=== PATIENT | male | born 1965 | race Caucasian/White ===

== ENCOUNTER → 2019-02-08 | Day surgery (SDC) | payer BC ==
[2019-02-08] VITALS (7 sets, daily range): BP systolic 128–148; BP diastolic 72–99
[~2019-02-08] VITALS: Ht 182.9 cm; Wt 98.9 kg
[~2019-02-08] MED LIST: ALPRAZOLAM 0.5 MG TAB ONE; ASPIR 8181 MG; ASPIRIN325 MG PO; CARAFATE1 G1 PO; DIPHENHYDRAMINE HCL 25 MG CAP ONE; FENTANYL CITRATE/PF 100MCG/2 ML INJ ONE; HEPARIN SOD (PORCINE) 1000 UNIT/ML 30ML ONE; HEPARIN SOD/SOD CHLORIDE 2,000 ML ONE; HYDROCODON-ACE1 EA11 PO; IOPAMIDOL 370 MG/ML 200 ML INFUS..BTL INJ ONE; ISOSORBIDE MONO30 MG PO; LIDOCAINE HCL 2% LOCAL 20 ML VIAL ONE; METFORMIN HCL500 M2 PO; METOPROLOL TART50 MG PO; MIDAZOLAM HCL 2 MG/2 ML VIAL ONE; NITROGLYCERIN/D5W 200 MCG/ML 250 ML ONE; PREDNISONE5 MG PO; SODIUM CHLORIDE 0.9% 1000ML 1,000 ML ONE; VERAPAMIL HCL 2.5 MG/ML 2 ML VIAL ONE; Z METOPROLOL HCT PO; Z.0.CARAFATE1 GM PO; Z.0.COZAAR50 MG PO; Z.0.EFFIENT10 MG PO; Z.0.FOLIC ACID1 MG PO; Z.0.LIPITOR40 MG PO; Z.0.LOVAZA1 GM PO; Z.1.METHOTREXATE2.5 PO; [UNRECOGNIZED DRUG - OTHER] PO
--- NOTE | 2019-04-18 07:35 | Operative Report ---
DATE OF PROCEDURE: 02/08/2019 SURGEON: Daniel Benitez MD INDICATIONS: Coronary artery disease, abnormal stress test. PROCEDURES PERFORMED: 1. Left heart catheterization, selective coronary angiography, left ventriculography. 2. Deployment of right wrist TR band. COMPLICATIONS: None. RECOMMENDATIONS: Medical therapy for moderate coronary artery disease. BLOOD LOSS: Minimal. DESCRIPTION OF PROCEDURE: Access obtained in the right radial artery. A 5-Romanian sheath was placed. Diagnostic coronary angiogram revealed patent left anterior descending artery stent, 50% ostial circumflex, 50% mid left anterior descending artery, and 50% proximal right coronary artery stenosis, remaining vessels had mild disease. No critical stenosis or occlusions. LV ejection fraction 60%. LV end-diastolic pressure of 15. No gradient across aortic valve pullback. Right wrist sheath and wire. Sheath and guide removed. TR band applied. The patient discharged home same day. Daniel Benitez MD KSB/MODL /[id number]
== END | disposition home or self-care (01) ==
LOC: CATH LAB 10:18
PROVIDERS: ATTEND Internal Medicine Interventional Cardiology
DX: I25.118 Atherosclerotic heart disease of native coronary artery with other forms of angina pectoris (principal); R94.39 Abnormal result of other cardiovascular function study; I10 Essential (primary) hypertension; E78.5 Hyperlipidemia, unspecified; E11.9 Type 2 diabetes mellitus without complications; Z88.6 Allergy status to analgesic agent; Z95.5 Presence of coronary angioplasty implant and graft; Z87.891 Personal history of nicotine dependence
CPT/HCPCS: 36415; 82948; 93458; C1769; C1887; J1644; J2001; J2250; J7030; Q9967

== ENCOUNTER 2020-04-08 09:39 | Inpatient (IN) | payer SELFPAY ==
[~2020-04-08] VITALS: Ht 182.9 cm; Wt 96.2 kg
[~2020-04-08 09:39] MED LIST changes: -ALPRAZOLAM 0.5 MG TAB ONE; -DIPHENHYDRAMINE HCL 25 MG CAP ONE; -FENTANYL CITRATE/PF 100MCG/2 ML INJ ONE; -HEPARIN SOD (PORCINE) 1000 UNIT/ML 30ML ONE; -HEPARIN SOD/SOD CHLORIDE 2,000 ML ONE; -IOPAMIDOL 370 MG/ML 200 ML INFUS..BTL INJ ONE; -LIDOCAINE HCL 2% LOCAL 20 ML VIAL ONE; -MIDAZOLAM HCL 2 MG/2 ML VIAL ONE; -NITROGLYCERIN/D5W 200 MCG/ML 250 ML ONE; -SODIUM CHLORIDE 0.9% 1000ML 1,000 ML ONE; -VERAPAMIL HCL 2.5 MG/ML 2 ML VIAL ONE
[2020-04-08] MEDS ORDERED: SODIUM CHLORIDE 0.9% 1000ML 1,000 ML IV STA (09:54)
[2020-04-08] MEDS ORDERED: KETOROLAC TROMETHAMINE 30 MG/ML VIAL IV ONE (09:54)
[2020-04-08] MEDS ORDERED: ONDANSETRON HCL INJ 2MG/ML 2ML 2 MG/ML VIAL IV ONE (09:54)
[2020-04-08] MEDS ORDERED: MORPHINE SULFATE 2 MG/ML SYR 1ML IV STA (09:54)
[2020-04-08] MEDS ORDERED: VANCOMYCIN 1GM/NS 250 ML 250 ML IV ONE (10:00)
[2020-04-08] MEDS ORDERED: MORPHINE SULFATE INJ 4 MG/ML INJ 1ML IV ONE (10:15)
[2020-04-08 10:39] LABS: BASOPHILS # (AUTO) 0.1 (0.0-0.1); BASOPHILS % 0.7 % (0.0-1.0); EOSINOPHILS # (AUTO) 0.5 (0.0-0.4); EOSINOPHILS % 2.9 % (0.0-6.0); HEMATOCRIT 48.1 % (38.2-49.6); LYMPHOCYTES # (AUTO) 2.4 (1.0-3.2); LYMPHOCYTES % 14.9 % (18.0-39.1); MEAN CORPUSCULAR HGB CONC 33.3 g/dL (31-35); MEAN CORPUSCULAR VOLUME 87.1 fL (81-99); MONOCYTES # (AUTO) 1.6 (0.2-0.8); MONOCYTES % 9.9 % (4.4-11.3); NEUTROPHILS # (AUTO) 11.6 (2.1-6.9); NEUTROPHILS % 70.8 % (38.7-80.0); PLATELET COUNT 210 x10e3/uL (140-360); RED BLOOD COUNT 5.52 x10e6/uL (4.3-5.7); RED CELL DISTRIBUTION WIDTH 13.8 % (11.7-14.4)
[2020-04-08] MEDS: PIPER-TAZ 3.375 GM 50 ML IV SCH ×3 (10:52→22:21)
[2020-04-08 10:57] LABS: ALANINE AMINOTRANSFERASE 32 IU/L (0-55); ALBUMIN 3.4 g/dL (3.5-5.0); ALBUMIN/GLOBULIN RATIO 0.8 (0.8-2.0); ALKALINE PHOSPHATASE 93 IU/L (40-150); ANION GAP 16.3 mmol/L (8-16); BLOOD UREA NITROGEN 11 mg/dL (7-26); BUN/CREATININE RATIO 10 (6-25); CALCIUM 9.7 mg/dL (8.4-10.2); CARBON DIOXIDE 26 mmol/L (22-29); CHLORIDE 101 mmol/L (98-107); CREATINE KINASE 25 IU/L (30-200); CREATININE, SERUM 1.05 mg/dL (0.72-1.25); EST GLOMERULAR FILTRATION RATE > 60 ML/MIN (60-); GLUCOSE 109 mg/dL (74-118); POTASSIUM 4.3 mmol/L (3.5-5.1); SODIUM 139 mmol/L (136-145)
--- NOTE | 2020-04-08 11:11 | Diagnostic Imaging Report ---
EXAMINATION: CHEST SINGLE (PORTABLE) INDICATION: Pain. COMPARISON: . FINDINGS: TUBES and LINES: None. LUNGS: Lungs are well inflated. There is no evidence of pneumonia or pulmonary edema. PLEURA: No pleural effusion or pneumothorax. HEART AND MEDIASTINUM: The cardiomediastinal silhouette is unremarkable. BONES AND SOFT TISSUES: No acute osseous lesion. Soft tissues are unremarkable. UPPER ABDOMEN: No free air under the diaphragm. IMPRESSION: No acute thoracic abnormality. Signed by: Dr. Galo Cannon M.D. on 04/08/2020 11:08 AM
[2020-04-08 11:18] LABS: INR 0.95; PROTHROMBIN TIME 13.2 seconds (11.9-14.5)
[2020-04-08] MEDS ORDERED: DEXTROSE 50% SYRINGE 50 ML IV PRN (11:30)
[2020-04-08] MEDS ORDERED: MORPHINE SULFATE 2 MG/ML SYR 1ML IV PRN (11:30)
[2020-04-08] MEDS ORDERED: TETANUS/DIPHTHERIA TOX ADULT 0.5 ML SYR IM ONE (11:45)
--- NOTE | 2020-04-08 11:46 | Emergency Department Note ---
History of Present Illnes History of Present Illness Chief Complaint: General Medicine Complaints History of Present Illness This is a 54 year old male HERE FOR LUMP AT TOP OF GLUTEAL CREASE THAT IS PAINFUL, STATES HAS BEEN HAVING COLD SWEATS FOR THE LAST 3 DAYS. STATES HAS BEEN THERE FOR A WEEK. Historian: Patient Arrival Mode: Car Plate Keeper Required: No Onset (how long ago): week(s) (1) Location: BUTTOCKS Quality: PAIN Radiation: Reports non-radiation Severity: severe Onset quality: gradual Timing of current episode: constant Progression: worsening Chronicity: new Context: Denies recent illness Relieving factors: none Exacerbating factors: none Associated symptoms: Reports fever/chills Treatments prior to arrival: none Past Medical/Family History Physician Review I have reviewed the patient's past medical and family history. Any updates have been documented here. Past Medical History Recent Fever: No Clinical Suspicion of Infectio: Yes New/Unexplained Change in Ment: No Past Medical History: Hypertension, Diabetes, CAD Other Medical History: SMOKE 1/2PPD Social History Smoking Cessation: Never Smoker Counseling Performed: No Alcohol Use: None Any Illegal Drug Use: No TB Exposure/Symptoms: No Physically hurt or threatened: No Family History Family history of heart diseas: Yes Other Last Tetanus: UNKNOWN Any Pre-Existing Lines (PICC,: No Review of Systems Review of Systems Constitutional: Reports chills, Reports fever EENTM: Reports no symptoms Cardiovascular: Reports no symptoms Respiratory: Reports no symptoms Gastrointestinal: Reports no symptoms Genitourinary: Reports no symptoms Musculoskeletal: Reports no symptoms Integumentary: Reports as per HPI Neurological: Reports no symptoms Psychological: Reports no symptoms Endocrine: Reports no symptoms Hematological/Lymphatic: Reports no symptoms Physical Exam Related Data Allergies: Coded Allergies: codeine (Verified Allergy, Mild, 04/30/12) Triage Vital Signs Vital Signs Date Time Temp Pulse Resp B/P (MAP) Pulse Ox O2 Delivery O2 Flow Rate FiO2 04/08/20 09:44 97.6 89 16 147/83 99 Vital signs reviewed: Yes Physical Exam CONSTITUTIONAL Constitutional: Present well-developed, Present well-nourished HENT HENT: Present normocephalic, Present atraumatic, Present oropharynx clear/moist, Present nose normal HENT L/R: Present left ext ear normal, Present right ext ear normal EYES Eyes: Reports PERRL, Reports conjunctivae normal NECK Neck: Present ROM normal PULMONARY Pulmonary: Present effort normal, Present breath sounds normal CARDIOVASCULAR Cardiovascular: Present regular rhythm, Present heart sounds normal, Present capillary refill normal, Present normal rate GASTROINTESTINAL Abdominal: Present soft, Present nontender, Present bowel sounds normal GENITOURINARY Genitourinary: Present exam deferred SKIN Skin: Present other (LARGE 15X8 CM AREA OF INDURATION LEFT BUTTOCKS NEAR UPPER GLUTEAL CLEFT AND EXTENDING TO RIGHT BUTTOCKS, NO FLUCTUANCE AND NO PERIRECTAL TENDERNESS OR INFLAMMATION) MUSCULOSKELETAL Musculoskeletal: Present ROM normal NEUROLOGICAL Neurological: Present alert, Present oriented x 3, Present no gross motor or sensory deficits PSYCHOLOGICAL Psychological: Present mood/affect normal, Present judgement normal Results Laboratory Result Diagram: 04/08/2058 04/08/2058 Laboratory Laboratory Tests Test 04/08/20 09:58 White Blood Count 16.37 x10e3/uL (4.8-10.8) Red Blood Count 5.52 x10e6/uL (4.3-5.7) Hemoglobin 16.0 g/dL (14.0-18.0) Hematocrit 48.1 % (38.2-49.6) Mean Corpuscular Volume 87.1 fL (81-99) Mean Corpuscular Hemoglobin 29.0 pg (28-32) Mean Corpuscular Hemoglobin Concent 33.3 g/dL (31-35) Red Cell Distribution Width 13.8 % (11.7-14.4) Platelet Count 210 x10e3/uL (140-360) Neutrophils (%) (Auto) 70.8 % (38.7-80.0) Lymphocytes (%) (Auto) 14.9 % (18.0-39.1) Monocytes (%) (Auto) 9.9 % (4.4-11.3) Eosinophils (%) (Auto) 2.9 % (0.0-6.0) Basophils (%) (Auto) 0.7 % (0.0-1.0) Neutrophils # (Auto) 11.6 (2.1-6.9) Lymphocytes # (Auto) 2.4 (1.0-3.2) Monocytes # (Auto) 1.6 (0.2-0.8) Eosinophils # (Auto) 0.5 (0.0-0.4) Basophils # (Auto) 0.1 (0.0-0.1) Absolute Immature Granulocyte (auto 0.13 x10e3/uL (0-0.1) Prothrombin Time 13.2 seconds (11.9-14.5) Prothromb Time International Ratio 0.95 Sodium Level 139 mmol/L (136-145) Potassium Level 4.3 mmol/L (3.5-5.1) Chloride Level 101 mmol/L (98-107) Carbon Dioxide Level 26 mmol/L (22-29) Anion Gap 16.3 mmol/L (8-16) Blood Urea Nitrogen 11 mg/dL (7-26) Creatinine 1.05 mg/dL (0.72-1.25) Estimat Glomerular Filtration Rate > 60 ML/MIN (60-) BUN/Creatinine Ratio 10 (6-25) Glucose Level 109 mg/dL (74-118) Calcium Level 9.7 mg/dL (8.4-10.2) Total Bilirubin 0.8 mg/dL (0.2-1.2) Aspartate Amino Transf (AST/SGOT) 15 IU/L (5-34) Alanine Aminotransferase (ALT/SGPT) 32 IU/L (0-55) Alkaline Phosphatase 93 IU/L (40-150) Creatine Kinase 25 IU/L (30-200) Creatine Kinase MB 0.50 ng/mL (0-5.0) Troponin I 0.013 ng/mL (0-0.300) B-Type Natriuretic Peptide 16.7 pg/mL (0-100) Total Protein 7.5 g/dL (6.5-8.1) Albumin 3.4 g/dL (3.5-5.0) Globulin 4.1 g/dL (2.3-3.5) Albumin/Globulin Ratio 0.8 (0.8-2.0) Lab results reviewed: Yes Imaging Imaging results reviewed: Yes Impressions EXAMINATION: CHEST SINGLE (PORTABLE) INDICATION: Pain. COMPARISON: . FINDINGS: TUBES and LINES: None. LUNGS: Lungs are well inflated. There is no evidence of pneumonia or pulmonary edema. PLEURA: No pleural effusion or pneumothorax. HEART AND MEDIASTINUM: The cardiomediastinal silhouette is unremarkable. BONES AND SOFT TISSUES: No acute osseous lesion. Soft tissues are unremarkable. UPPER ABDOMEN: No free air under the diaphragm. IMPRESSION: No acute thoracic abnormality. Signed by: Dr. Galo Cannon M.D. on 04/08/2020 11:08 AM Diagnostics Tests Diagnostic test(s) reviewed: Yes Assessment & Plan Medical Decision Making MDM DIABETIC PATIENT WITH CELLULITIS/ABSCESS OF LEFT AND TO LESSER EXTENT RIGHT BUTTOCKS - CHECK CBC, CHEM'S, BLOOD CX'S, UA/CX - DIFF DX INCLUDES CELLULITIS, ABSCESS, PERIRECTAL, EVAL LEUKOCYTOSIS, RENAL INSUFF AND NEED FOR RENAL FUNCTION TO DOSE ABX'S. Assessment & Plan Final Impression: (1) Cellulitis and abscess of buttock Depart Disposition: ADMITTED Last Vital Signs Date Time Temp Pulse Resp B/P (MAP) Pulse Ox O2 Delivery O2 Flow Rate FiO2 04/08/20 09:44 97.6 89 16 147/83 99 Home Meds Reported Medications Prednisone (PREDNISONE) 5 Mg Tablet, 5 MG PO PRN PRN for MODERATE PAIN (4-6) 02/07/19 Hydrocodone Bit/Acetaminophen (HYDROCODON-ACETAMINOPHEN 5-325) 1 Each Tablet, 1 TAB PO PRN PRN for MODERATE PAIN (4-6) 02/07/19 Aspirin (ASPIRIN) 325 Mg Tablet, 325 MG PO DAILY, #30 TAB 02/07/19 Metoprolol Tartrate (METOPROLOL TARTRATE) 50 Mg Tablet, 50 MG PO DAILY, TAB 02/07/19 Isosorbide Mononitrate (ISOSORBIDE MONONITRATE ER) 30 Mg Tab.er.24h, 30 MG PO DAILY, #30 TAB 02/07/19 Metformin Hcl (METFORMIN HCL ER) 500 Mg Tab.er.24, 500 MG PO DAILY, #60 TAB 02/01/16 Atorvastatin Calcium (Lipitor) 40 Mg Tablet, 40 MG PO DAILY 05/03/12 Methotrexate Sodium (Methotrexate) 2.5 Mg Tablet, 2.5 MG PO UD PATIENT TAKES ONCE A WEEK ON Mondays04/30/12 Losartan Potassium (Cozaar) 50 Mg Tablet, 50 MG PO DAILY 04/30/12 Folic Acid (Folic Acid) 1 Mg Tablet, 1 MG PO DAILY 04/30/12 Medications in the ED Morphine Sulfate 4 mg ONCE STAT IV ; Start 04/08/20 at 09:54; Stop 04/08/20 at 09:55; Status UNV Ondansetron HCl 4 mg ONCE ONCE IV Last administered on 04/08/20at 10:52; Admin Dose 4 MG; Start 04/08/20 at 09:54; Stop 04/08/20 at 10:02; Status DC Ketorolac Tromethamine 30 mg ONCE ONCE IV Last administered on 04/08/20at 10:52; Admin Dose 30 MG; Start 04/08/20 at 09:54; Stop 04/08/20 at 10:01; Status DC Sodium Chloride 1,000 ml @ 0 mls/hr Q0M STAT IV Last administered on 04/08/20at 10:52; Admin Dose 999 MLS/HR; Start 04/08/20 at 09:54; Stop 04/08/20 at 09:59; Status DC Piperacillin Sod/ Tazobactam Sod 50 ml @ 50 mls/hr 0400,1000,1600,2200 IV Last administered on 04/08/20at 10:52; Admin Dose 50 MLS/HR; Start 04/08/20 at 10:00; Stop 04/15/20 at 09:59 Vancomycin HCl 250 ml @ 200 mls/hr NOW ONCE IV Last administered on 04/08/20at 10:52; Admin Dose 200 MLS/HR; Start 04/08/20 at 10:00; Stop 04/08/20 at 11:14; Status DC Morphine Sulfate 4 mg ONCE ONCE IV Last administered on 04/08/20at 10:52; Admin Dose 4 MG; Start 04/08/20 at 10:15; Stop 04/08/20 at 10:16; Status DC Ondansetron HCl 4 mg Q4H PRN IV NAUSEA AND VOMITING; Start 04/08/20 at 11:30; Stop 05/08/20 at 11:29; Status UNV Sodium Chloride 1,000 ml @ 100 mls/hr Q10H IV ; Start 04/08/20 at 11:30; Stop 04/09/20 at 07:29; Status UNV Morphine Sulfate 4 mg Q3H PRN IV SEVERE PAIN (7-10); Start 04/08/20 at 11:30; Stop 04/15/20 at 11:29; Status UNV Insulin Human Lispro ACHS SQ ; Start 04/08/20 at 11:30; Stop 05/08/20 at 11:29; Status UNV Dextrose 50 ml PRN PRN IV BLOOD SUGAR; Start 04/08/20 at 11:30; Stop 05/08/20 at 11:29; Status UNV AYLIN TEMPLE MD Apr 08, 2020 11:46
[2020-04-08 11:51] LABS: PARTIAL THROMBOPLASTIN TIME 27.3 seconds (23.8-35.5)
--- OUTSIDE RECORDS SUMMARY | 2020-04-08 11:52 | XMS REPORT | Continuity of Care Document ---
Author Author [facility] Organization [facility] Address [address] [place] [address] [place] [id number] Phone Unavailable Care Team Providers Care Kelp Cutter Name Role Phone Placido TEMPLE Attphys Unavailable Problems This patient has no known problems. Allergies, Adverse Reactions, Alerts This patient has no known allergies or adverse reactions. Medications This patient has no known medications. Procedures This patient has no known procedures. Results Test Description Test Time Test Comments Results Result Comments Source CHEST SINGLE (PORTABLE) 2020-04-08 11:04:[address] [address] Patient Name: ANYA AGGARWAL MR #: [id number] : 1965 Age/Sex: 54/M Req #: [id number] Adm Physician: Ordered by: YALIN TEMPLE MD Report #: [id number] Location: ER Room/Bed: Procedure: [id number] DX/CHEST SINGLE (PORTABLE) Exam Date: 04/08/20 Exam Time: 1040 REPORT STATUS: Signed EXAMINATION: CHEST SINGLE (PORTABLE) INDICATION: Pain. COMPARISON: . FINDINGS: TUBES and LINES: None. LUNGS: Lungs are well inflated. There is no evidence of pneumonia or pulmonary edema. PLEURA: No pleural effus ion or pneumothorax. HEART AND MEDIASTINUM: The cardiomediastinal silhouette is unremarkable. BONES AND SOFT TISSUES: No acute osseous lesion. Soft tissues are unremarkable. UPPER ABDOMEN: No free air under the diaphragm. IMPRESSION: No acute thoracic abnormality. Signed by: Dr. Galo Estrada M.D. on 04/08/2020 11:08 AM Dictated By: AZEB ESTRADA MD, MD 07 Transcribed By: TOMY on 04/08/201107 COPY TO: AYLIN TEMPLE MD
[2020-04-08] MEDS: INSULIN LISPRO 100 UNIT/1 ML 3ML VIAL SQ SCH ×3 (13:14→21:42)
--- NOTE | 2020-04-08 13:50 | NUR ---
RCD PT FROM ER BY BED PT IS ALERT AND ORIENTED RESTING ON BED VITALS CHECKED ,IV PATENT BY SALINE FLUSH ADMISSION ASSESSMENT AND HISTORY DONE REDNESS ,PAIN AND SWELLING ON THE BUTTOCKS INSTRUCTED PT HOSPITAL POLICY AND ROUTINE SPECIALLY IN VISITING POLICY BED LOW AND LOCKED CALL LIGHT IN REACH
[2020-04-08] MEDS: SODIUM CHLORIDE 0.9% 1000ML 1,000 ML IV SCH (14:30)
[2020-04-08 14:38] VITALS: BP 128/82
[2020-04-08 14:46] VITALS: BP 128/82
[2020-04-08] MEDS: MORPHINE SULFATE INJ 4 MG/ML INJ 1ML IV PRN (15:14)
[2020-04-08] MEDS: ONDANSETRON HCL INJ 2MG/ML 2ML 2 MG/ML VIAL IV PRN (15:17)
[2020-04-08 15:44] VITALS: BP 132/77
--- NOTE | 2020-04-08 18:38 | NUR ---
pt resting on bed bed side report given to oncoming nurse
--- NOTE | 2020-04-08 19:15 | NUR ---
received report from day nurse. patient is resting comfortably in the bed. bed is in the lowest position and call light is within reach. will continue to monitor patient.
--- NOTE | 2020-04-08 20:06 | NUR ---
patient has a temperature of 102. CARTOGRAPHY TEACHER notified. received new order for tylenol 650mg po q6 hours as needed for elevated temperature.
[2020-04-08] MEDS: ACETAMINOPHEN 325 MG TAB PO PRN (20:26)
[2020-04-08] MEDS ORDERED: HYDRALAZINE HCL 20 MG/ML VIAL IV PRN (20:30)
[2020-04-08 20:39] VITALS: BP 125/62
[2020-04-08] MEDS: VANCOMYCIN 1GM/NS 250 ML 250 ML IV SCH (21:15)
[2020-04-08 21:17] VITALS: BP 125/62
[2020-04-09] VITALS (9 sets, daily range): BP systolic 106–128; BP diastolic 57–75
[2020-04-09] MEDS: ONDANSETRON HCL INJ 2MG/ML 2ML 2 MG/ML VIAL IV PRN (02:10)
[2020-04-09] MEDS: MORPHINE SULFATE INJ 4 MG/ML INJ 1ML IV PRN ×3 (02:11→20:33)
[2020-04-09] MEDS: PIPER-TAZ 3.375 GM 50 ML IV SCH ×4 (03:56→22:00)
[2020-04-09] MEDS: SODIUM CHLORIDE 0.9% 1000ML 1,000 ML IV SCH ×3 (03:57→22:45)
[2020-04-09] MEDS: ACETAMINOPHEN 325 MG TAB PO PRN ×2 (04:14→11:55)
[2020-04-09 06:05] LABS: BASOPHILS # (AUTO) 0.1 (0.0-0.1); BASOPHILS % 0.5 % (0.0-1.0); EOSINOPHILS # (AUTO) 0.5 (0.0-0.4); EOSINOPHILS % 3.3 % (0.0-6.0); HEMATOCRIT 39.4 % (38.2-49.6); LYMPHOCYTES # (AUTO) 1.9 (1.0-3.2); LYMPHOCYTES % 12.6 % (18.0-39.1); MEAN CORPUSCULAR HEMOGLOBIN 28.8 pg (28-32); MEAN CORPUSCULAR VOLUME 87.4 fL (81-99); MONOCYTES # (AUTO) 1.7 (0.2-0.8); NEUTROPHILS # (AUTO) 10.9 (2.1-6.9); NEUTROPHILS % 71.7 % (38.7-80.0); PLATELET COUNT 166 x10e3/uL (140-360); RED BLOOD COUNT 4.51 x10e6/uL (4.3-5.7); RED CELL DISTRIBUTION WIDTH 13.9 % (11.7-14.4)
[2020-04-09 06:38] LABS: ALANINE AMINOTRANSFERASE 24 IU/L (0-55); ALBUMIN 2.6 g/dL (3.5-5.0); ALBUMIN/GLOBULIN RATIO 0.8 (0.8-2.0); ALKALINE PHOSPHATASE 74 IU/L (40-150); ANION GAP 14.7 mmol/L (8-16); BLOOD UREA NITROGEN 12 mg/dL (7-26); BUN/CREATININE RATIO 10 (6-25); CALCIUM 8.4 mg/dL (8.4-10.2); CARBON DIOXIDE 25 mmol/L (22-29); CHLORIDE 102 mmol/L (98-107); CREATININE, SERUM 1.16 mg/dL (0.72-1.25); EST GLOMERULAR FILTRATION RATE > 60 ML/MIN (60-); GLUCOSE 125 mg/dL (74-118); POTASSIUM 4.7 mmol/L (3.5-5.1); SODIUM 137 mmol/L (136-145)
--- NOTE | 2020-04-09 06:40 | Consultation ---
DATE OF CONSULTATION: 04/09/2020 HISTORY OF PRESENT ILLNESS: The patient is a 54-year-old male, presents with complaints of pain and swelling in the left buttock area. He has had symptoms for about a week. He has associated fever and sweats. Came to the emergency room, where evaluation suggested cellulitis, abscess in the buttock, particularly on the left side. The patient has not noticed any drainage. Bowel function has been normal. PAST MEDICAL HISTORY: Significant for type 2 diabetes, hypertension, coronary artery disease, had previous coronary stent. MEDICATIONS: At home were: 1. Aspirin. 2. Lipitor. 3. Folic acid. 4. Pain medication. 5. Isosorbide. 6. Losartan. 7. Metformin. 8. Methotrexate for rheumatoid arthritis. 9. Metoprolol. ALLERGIES: CODEINE. FAMILY HISTORY: Noncontributory. SOCIAL HISTORY: The patient smokes cigarettes half pack per day. Does not drink alcohol. REVIEW OF SYSTEMS: As stated above, otherwise was negative. PHYSICAL EXAMINATION: GENERAL: The patient is awake and alert, in no distress. VITAL SIGNS: At this time reveal fever during the night up to 102.7, heart rate is normal at this time. Blood pressure is normal. HEENT: Sclerae are nonicteric. NECK: No masses. LUNGS: Equal breath sounds are clear bilaterally. CARDIAC: Regular rate and rhythm. ABDOMEN: Soft. There is no tenderness. No mass. No organomegaly. EXTREMITIES: In the buttock area on the left side, particularly there is erythema and induration. There is tenderness. There is no drainage. Extremities have no edema. NEUROLOGIC: Grossly intact. ASSESSMENT: A 54-year-old male with abscess in the left superior buttock extending to the right side. PLAN: Incision and drainage to be done today. There are no signs of necrotizing infection. Procedure was explained to the patient including risks, benefits and alternatives. He understands. He has had the opportunity to ask questions. Thank you for asking me to see Mr. Interiano. MD VAZQUEZ Malone/MELIZA /[id number]
[2020-04-09 07:00] LABS: MAGNESIUM 1.7 MG/DL (1.3-2.1); PHOSPHORUS 3.5 MG/DL (2.3-4.7)
--- NOTE | 2020-04-09 07:02 | NUR ---
report given to day nurse. patient is resting comfortably in the bed. bed is in the lowest position and call light is within reach.
[2020-04-09] MEDS: INSULIN LISPRO 100 UNIT/1 ML 3ML VIAL SQ SCH ×4 (07:30→20:33)
[2020-04-09] MEDS ORDERED: MAGNESIUM SULF 1GRAM/DEXTROSE 100 ML IV ONE (08:30)
[2020-04-09] MEDS: FAMOTIDINE 20 MG/2 ML VIAL IV SCH ×2 (09:00→17:46)
[2020-04-09] MEDS: VANCOMYCIN 1GM/NS 250 ML 250 ML IV SCH ×2 (10:40→22:00)
[2020-04-09] MEDS ORDERED: LIDOCAINE HCL 1% LOCAL INJ 20 ML VIAL ONE (11:26)
[2020-04-09] MEDS ORDERED: HYDROCODONE/APAP 5MG-325MG TAB PO PRN ×2 (12:30→12:45)
--- NOTE | 2020-04-09 12:39 | NUR ---
PT NOT IN ROOM, GONE FOR A PROCEDURE LEFT PACKET OF INFORMATION WITH COMMUNITY [employer]OURCES FOR ASSISTANCE WITH LOW TO NO INCOME TO PATIENT. RESOURCES THAT PATIENT MAY BE ABLE TO FOLLOW UP UPON DISCHARGE. PT EDUCATED ON EACH RESOURCE AND UNDERSTANDING HOW TO FOLLOW UP TO SEE IF QUALIFIED FOR EACH RESOURCE.
[2020-04-09] MEDS ORDERED: ACETAMINOPHEN 325 MG TAB PO PRN (12:45)
[2020-04-09] MEDS ORDERED: ONDANSETRON HCL INJ 2MG/ML 2ML 2 MG/ML VIAL IV PRN (12:45)
[2020-04-09] MEDS ORDERED: ONDANSETRON HCL INJ 2MG/ML 2ML 2 MG/ML VIAL ONE (14:33)
[2020-04-09] MEDS ORDERED: LIDOCAINE HCL 2% LOCAL INJ 5 ML SDV VIAL INJ ONE (14:33)
[2020-04-09] MEDS ORDERED: PROPOFOL IV EMULSION 10 MG/ML 20 ML VIAL ONE (14:33)
[2020-04-09] MEDS ORDERED: SEVOFLURANE INHAL SOLN 250 ML PEN BTL ONE (14:33)
[2020-04-09] MEDS ORDERED: DEXAMETHASONE SOD PHOS INJ 4 MG/ML VIAL ONE (14:33)
[2020-04-09] MEDS ORDERED: MIDAZOLAM HCL 2 MG/2 ML VIAL ONE (15:11)
[2020-04-09] MEDS ORDERED: FENTANYL CITRATE/PF 100MCG/2 ML INJ ONE (15:11)
--- NOTE | 2020-04-09 15:40 | NUR ---
Radiology notified that PICC line consent is signed.
--- NOTE | 2020-04-09 17:40 | NUR ---
Dressing fell off and is saturated with blood. Packing is still in place. Covered sites with dry sterile dressing to bilateral buttock
[2020-04-09] MEDS: MAGNESIUM OXIDE 400 MG TAB PO SCH (17:46)
[2020-04-09] MEDS: ASCORBIC ACID 500 MG TAB PO SCH (17:46)
[2020-04-09] MEDS: OYST-CAL-D 500MG TABLET PO SCH (17:46)
--- NOTE | 2020-04-09 18:19 | History and Physical ---
PRIMARY CARE PHYSICIAN: No PCP listed. CONSULTING PHYSICIAN: Dr. Elbert Duran. CHIEF COMPLAINT: Cellulitis and abscess of the buttock. HISTORY OF PRESENT ILLNESS: The patient is a 54-year-old male who presented with complaints of swelling and pain in the left buttock area. He has had symptoms of sweats with fever and chills for about the past week. He came for evaluation in the emergency department and abscess on the left buttock extending to the right and cellulitis was suggested. The patient has not noticed any drainage and has not noticed any open wounds. Bowel function has been normal. He is seen alone in room 200. PAST MEDICAL HISTORY: Diabetes mellitus, hypertension, coronary artery disease, unstable angina, anterior wall ST-elevation NH, and rheumatoid arthritis. PAST SURGICAL HISTORY: He has had several left heart cath and coronary artery stent placement x1, and appendectomy. FAMILY HISTORY: Father had lung cancer. Mother had kidney failure. SOCIAL HISTORY: He is smoked about half a pack a day cigarettes for 15 years. Denies alcohol or illicit drug use. ALLERGIES: CODEINE. HOME MEDICATIONS: 1. Aspirin. 2. Lipitor. 3. Folic acid. 4. Pain medication. 5. Losartan. 6. Isosorbide. 7. Metformin. 8. Methotrexate for rheumatoid arthritis. 9. Metoprolol. CURRENT MEDICATIONS: 1. Zosyn. 2. Vancomycin. 3. Lispro insulin sliding scale. 4. IV Pepcid. 5. Morphine sulfate. 6. Tylenol p.r.n. 7. Hydralazine p.r.n. 8. Zofran p.r.n. REVIEW OF SYSTEMS: A 14-point review of systems was completed and within that patient admitted to having fever off and on with chills and sweats. The last bowel movement was 04/07. Otherwise, bilateral buttock pain as per history of present illness. PHYSICAL EXAMINATION: VITAL SIGNS: Temperature 99.1, T-max 102.7, heart rate 81, blood pressure 111/71, respirations 19, oxygen saturation 99%. Height 6 feet 0 inch, weight 212 pounds. BMI 28.74. GENERAL: The patient is lying supine, awake and alert. LUNGS: Clear to auscultation. Respirations even and nonlabored. HEENT: EOMI. NECK: Supple. CARDIOVASCULAR: Regular rate and rhythm. No murmur. ABDOMEN: Bowel sounds positive. Soft, nontender. EXTREMITIES: Without pitting edema. No clubbing, cyanosis, or marked swelling. NEUROLOGICAL: GCS 15. Nonfocal. INTEGUMENTARY: No lesions noted or drainage. MUSCULOSKELETAL: Bilateral buttocks tender to gentle palpation specially at the top in between the crease, hardened area to palpation. LABORATORY DATA: WBC 15.13, hemoglobin 13, hematocrit 39.4, and platelets 166. On admission, WBC 16.37. Sodium 137, potassium 4.7, chloride 102, CO2 of 25, anion gap 14.7, BUN 12, creatinine 1.16, estimated GFR greater than 60, and glucose 125. Fingerstick blood glucose levels 111 and 116. Calcium 8.4, phosphorus 3.5, magnesium 1.7, total bilirubin 0.9, AST 13, ALT 24, alkaline phosphatase 74, total protein 5.8, albumin 2.6, phosphorus 3.5, and magnesium 1.7. Puga virus by PCR collected 04/08 and pending. Blood cultures x2 collected 04/08 showed no growth after 24 hours. Chest x-ray done 04/08 shows no acute thoracic abnormality. ASSESSMENT AND PLAN: 1. Bilateral upper buttock and ensure crease abscess, cellulitis with planned I and D for 04/09/[address] Duran, sepsis (POA). Remains afebrile, T-max 102.7, WBC 15.1. Currently on vancomycin and Zosyn. We will continue these. PICC line ordered as the patient will likely require multiple doses of IV antibiotics, vancomycin trough with every 3rd dose. Wound Healing supplements ordered, n.p.o. for surgery, had a preoperative discussion with the patient regarding incentive spirometry use and importance. We will consider consulting Infectious Disease. Follow up on intraoperative wound culture and sensitivity results. 2. Uncontrolled type 2 diabetes mellitus with hyperglycemia and skin manifestations. Continue sliding scale insulin. Glucose 125. Check hemoglobin A1c in the morning. Monitor fingerstick blood glucose levels before meals and at bedtime. 3. Controlled hypertension. Resume home medications and monitor blood pressure. 4. Peripheral artery disease with history a STEMI of anterior wall. Continue aspirin and beta horace. 5. Active smoker. Encourage cessation. Incentive spirometry every hour while awake. 6. Mild acute hypomagnesemia. Magnesium level 1.7, 2 g magnesium sulfate ordered, followup level in a.m. 7. Rheumatoid arthritis. Hold methotrexate for now. 8. Hyperlipidemia. Resume Lipitor. Check lipid panel in a.m. 9. Prophylaxis. IV Pepcid, SCDs. Time spent 60 minutes. Billing code 10019. Dictated by Rafael Saravia, SUPERINTENDENT MECHANICAL MD JESS ArriazaP/MODL /[id number]
--- NOTE | 2020-04-09 20:03 | Diagnostic Imaging Report ---
Examination: Single AP view of the chest. COMPARISON: Portable chest 04/08/2020 INDICATION: Line placement IMPRESSION: 1. Lines and Tubes: Interval placement of left-sided PICC line, which has distal tip projecting in the mid SVC. 2. Lungs are grossly clear. No consolidation or effusion. 3. Cardiomediastinal silhouette is normal. Pulmonary vasculature is normal. 4. No acute bony abnormalities. Signed by: Dr. Jd Mirza M.D. on 04/09/2020 8:00 PM
--- NOTE | 2020-04-09 20:05 | Operative Report ---
DATE OF PROCEDURE: 04/09/2020 SURGEON: Elbert Duran MD PREOPERATIVE DIAGNOSIS: Deep abscess, bilateral buttocks. POSTOPERATIVE DIAGNOSIS: Deep abscess, bilateral buttocks. PROCEDURE: Incision and drainage, deep abscess, bilateral buttocks. SPRING FORMER: None. ANESTHESIA: General. INDICATIONS AND FINDINGS: The patient is a 54-year-old male admitted with complaints of pain and swelling in the superior buttocks bilaterally as well as with fever. At surgery, the patient had a large abscess, mostly on the left side extending the right side extending deep into the buttocks down to muscles around the lower back approximately 100 mL of purulent fluid was drained. TECHNIQUE: After adequate general anesthesia, the patient placed on right side down position. The buttocks and lower back were prepped and draped in sterile fashion with Betadine solution. Incision was made in the left superior buttock over the area of induration, carried down through subcutaneous tissue through the deeper tissues through the fascia and abscess cavity was entered. Purulent fluid was drained. Sample taken for culture and sensitivity. About 100 mL of purulent fluid was drained. The abscess cavity was large extended from the left side to the right. Additional incision was made on the right side to provide adequate drainage. This was at the superior buttock on the right. This was carried down through subcutaneous tissue to enter the abscess cavity. The abscess cavity was irrigated with saline, it was then packed open with half-inch iodoform gauze and sterile dressing applied. The patient tolerated the procedure well. Estimated blood loss was 30 mL. There were no complications. All counts were correct. The patient was taken to the recovery room in satisfactory condition. Elbert Duran MD DWG/MODL /[id number] cc: Shaji Montes MD
[2020-04-09] MEDS: ATORVASTATIN 40 MG TAB PO SCH (20:32)
[2020-04-10] VITALS (8 sets, daily range): BP systolic 112–134; BP diastolic 55–79
[2020-04-10] MEDS: PIPER-TAZ 3.375 GM 50 ML IV SCH ×4 (05:18→23:30)
[2020-04-10] MEDS: MORPHINE SULFATE INJ 4 MG/ML INJ 1ML IV PRN (05:19)
[2020-04-10 05:50] LABS: BASOPHILS # (AUTO) 0.1 (0.0-0.1); BASOPHILS % 0.6 % (0.0-1.0); EOSINOPHILS # (AUTO) 0.5 (0.0-0.4); EOSINOPHILS % 4.3 % (0.0-6.0); HEMATOCRIT 37.4 % (38.2-49.6); HEMOGLOBIN 12.3 g/dL (14.0-18.0); LYMPHOCYTES % 17.3 % (18.0-39.1); MEAN CORPUSCULAR HEMOGLOBIN 28.7 pg (28-32); MEAN CORPUSCULAR HGB CONC 32.9 g/dL (31-35); MEAN CORPUSCULAR VOLUME 87.2 fL (81-99); MONOCYTES % 8.4 % (4.4-11.3); NEUTROPHILS # (AUTO) 7.9 (2.1-6.9); NEUTROPHILS % 68.6 % (38.7-80.0); PLATELET COUNT 150 x10e3/uL (140-360); RED BLOOD COUNT 4.29 x10e6/uL (4.3-5.7); RED CELL DISTRIBUTION WIDTH 13.9 % (11.7-14.4)
[2020-04-10 06:09] LABS: CHOL/HDL RATIO 8.1 (3.9-4.7)
[2020-04-10 06:29] LABS: THYROID STIMULATING HORMONE 3.562 uIU/mL (0.350-4.940)
[2020-04-10] MEDS: INSULIN LISPRO 100 UNIT/1 ML 3ML VIAL SQ SCH ×4 (07:30→20:12)
[2020-04-10] MEDS: METFORMIN HCL 500 MG TAB CR PO SCH (08:41)
[2020-04-10] MEDS: METOPROLOL TARTRATE 50 MG TAB PO SCH (08:42)
[2020-04-10] MEDS: FOLIC ACID 1 MG TAB PO SCH (08:42)
[2020-04-10] MEDS: MAGNESIUM OXIDE 400 MG TAB PO SCH ×2 (08:42→18:17)
[2020-04-10] MEDS: MULTIVITAMINS/MINERALS TAB PO SCH (08:42)
[2020-04-10] MEDS: OYST-CAL-D 500MG TABLET PO SCH ×2 (08:42→18:17)
[2020-04-10] MEDS: ISOSORBIDE MONONITRATE 30 MG TAB CR PO SCH (08:42)
[2020-04-10] MEDS: ZINC SULFATE 220 MG CAP PO SCH (08:42)
[2020-04-10] MEDS: FAMOTIDINE 20 MG/2 ML VIAL IV SCH ×2 (08:42→18:17)
[2020-04-10] MEDS: ASCORBIC ACID 500 MG TAB PO SCH ×2 (08:42→18:17)
[2020-04-10] MEDS: ASPIRIN 325 MG TAB PO SCH (08:42)
[2020-04-10] MEDS: LOSARTAN POTASSIUM 25 MG TAB PO SCH (08:42)
[2020-04-10] MEDS: SODIUM CHLORIDE 0.9% 1000ML 1,000 ML IV SCH ×3 (08:45→18:23)
[2020-04-10] MEDS ORDERED: LOSARTAN POTASSIUM 50 MG PO SCH (09:00)
[2020-04-10] MEDS ORDERED: NON-FORMULARY MEDICATION (Atorvastatin Calcium (Lipitor) 40 MG) PO SCH (09:00)
[2020-04-10] MEDS: VANCOMYCIN 1GM/NS 250 ML 250 ML IV SCH ×2 (10:35→22:30)
[2020-04-10] MEDS ORDERED: CEFTRIAXONE SOD 2 GM/NS 100 ML 100 ML IV ONE (17:00)
--- NOTE | 2020-04-10 18:55 | Consultation ---
DATE OF CONSULTATION: REASON FOR CONSULTATION: Abscess. HISTORY OF PRESENT ILLNESS: This patient, who is a 54-year-old gentleman, denies past medical history, comes in with abscess in the buttock area. The patient was seen by Dr. Duran, underwent I and D. The patient denies history of trauma. The patient ,who has swelling in the left buttock area. He had this for a couple of weeks. He has had fever and chills. The patient is being admitted. PAST MEDICAL HISTORY: Diabetes mellitus, hypertension, coronary artery disease, and hypercholesterolemia. Also, his past medical history is rheumatoid arthritis. PAST SURGICAL HISTORY: Denies. ALLERGIES: NKA. SOCIAL HISTORY: There is no smoking, drug abuse, or alcohol abuse. FAMILY HISTORY: Unremarkable. HOME MEDICATIONS: He is on aspirin, Lipitor, folic acid, losartan, and methotrexate. REVIEW OF SYSTEMS: At the present time, HEENT: Negative. PULMONARY: Negative. CARDIAC: Negative. His blood cultures no growth. His wound culture showing gram positive cocci and gram-negative bacilli. The patient has a PICC line. PHYSICAL EXAMINATION: GENERAL: He is currently alert and oriented. Does not seem to be in acute distress. VITAL SIGNS: Stable, currently afebrile. HEENT: He is not icteric. NECK: Supple. CHEST: Clear. COR: S1 and S2. No S3, S4, or murmurs. ABDOMEN: Soft. The perirectal area, there is status post drainage. IMPRESSION: Abscess, status post I and D. Currently on vancomycin and Zosyn. Await culture sensitivity, is still draining pus. Discussed with the patient. Depending on the bacteria, we will make final recommendation tomorrow. We will arrange for home IV antibiotic. MD LINDSEY Galloway/MELIZA /[id number]
--- NOTE | 2020-04-10 19:38 | NUR ---
pt received. pt assessed. no ss of distress noted. no co pain at time. sacral drsg cdi. will cont to follow poc. call villatoro within reach. spoke to maki hargrove regarding iv abx. new orders received.
[2020-04-10] MEDS: DOCUSATE SODIUM 100 MG CAP PO SCH (20:12)
[2020-04-10] MEDS: ATORVASTATIN 40 MG TAB PO SCH (20:12)
--- NOTE | 2020-04-10 20:17 | NUR ---
right ac 18 g dc. catheter tip intact. drsg applied to site. pt tolerated well. call villatoro within reach.
--- NOTE | 2020-04-10 22:41 | NUR ---
pt co pain to sacral area. upon administration of medication pt stated no pain and refused any medication. no distress noted. call villatoro within reach.
--- NOTE | 2020-04-11 04:26 | NUR ---
pt resting. no distress noted. call villatoro within reach.
--- NOTE | 2020-04-11 04:58 | NUR ---
blood drawn and sent to lab per orders. pt tolerated well. no distress noted. call villatoro within reach.
[2020-04-11] MEDS: PIPER-TAZ 3.375 GM 50 ML IV SCH ×3 (04:59→16:00)
[2020-04-11 05:01] VITALS: BP 129/71
[2020-04-11 05:29] LABS: BASOPHILS # (AUTO) 0.1 (0.0-0.1); BASOPHILS % 1.1 % (0.0-1.0); EOSINOPHILS # (AUTO) 0.5 (0.0-0.4); EOSINOPHILS % 5.7 % (0.0-6.0); HEMATOCRIT 36.5 % (38.2-49.6); LYMPHOCYTES # (AUTO) 1.9 (1.0-3.2); LYMPHOCYTES % 23.8 % (18.0-39.1); MEAN CORPUSCULAR HEMOGLOBIN 29.2 pg (28-32); MEAN CORPUSCULAR HGB CONC 32.9 g/dL (31-35); MEAN CORPUSCULAR VOLUME 88.8 fL (81-99); MONOCYTES # (AUTO) 0.8 (0.2-0.8); MONOCYTES % 9.6 % (4.4-11.3); NEUTROPHILS # (AUTO) 4.7 (2.1-6.9); NEUTROPHILS % 59.1 % (38.7-80.0); PLATELET COUNT 176 x10e3/uL (140-360); RED BLOOD COUNT 4.11 x10e6/uL (4.3-5.7); RED CELL DISTRIBUTION WIDTH 13.5 % (11.7-14.4)
[2020-04-11] MEDS: SODIUM CHLORIDE 0.9% 1000ML 1,000 ML IV SCH (05:42)
[2020-04-11 06:00] LABS: ANION GAP 15.1 mmol/L (8-16); BLOOD UREA NITROGEN 14 mg/dL (7-26); BUN/CREATININE RATIO 17 (6-25); CALCIUM 8.3 mg/dL (8.4-10.2); CARBON DIOXIDE 24 mmol/L (22-29); CHLORIDE 104 mmol/L (98-107); CREATININE, SERUM 0.84 mg/dL (0.72-1.25); EST GLOMERULAR FILTRATION RATE > 60 ML/MIN (60-); GLUCOSE 107 mg/dL (74-118); POTASSIUM 4.1 mmol/L (3.5-5.1); SODIUM 139 mmol/L (136-145)
--- NOTE | 2020-04-11 07:00 | NUR ---
BEDSIDE SHIFT REPORT FROM FLATCAR WHACKER RN. PT DENIES NEEDS AT THIS TIME.
[2020-04-11] MEDS: INSULIN LISPRO 100 UNIT/1 ML 3ML VIAL SQ SCH ×3 (07:30→16:27)
[2020-04-11 08:13] VITALS: BP 124/75
[2020-04-11 08:16] VITALS: BP 124/75
--- NOTE | 2020-04-11 08:23 | NUR ---
PT SOILED BUTTOCK DRESSINGS WITH STOOL. PT REMOVED DRESSINGS. PT SHOWERED, WOUNDS CLEANED AND REDRESSED.
[2020-04-11] MEDS ORDERED: TYLENOL WITH C1 EACH PO (08:44)
[2020-04-11] MEDS: METFORMIN HCL 500 MG TAB CR PO SCH (09:04)
[2020-04-11] MEDS: ASPIRIN 325 MG TAB PO SCH (09:05)
[2020-04-11] MEDS: FAMOTIDINE 20 MG/2 ML VIAL IV SCH (09:05)
[2020-04-11] MEDS: FOLIC ACID 1 MG TAB PO SCH (09:05)
[2020-04-11] MEDS: LOSARTAN POTASSIUM 25 MG TAB PO SCH (09:05)
[2020-04-11] MEDS: METOPROLOL TARTRATE 50 MG TAB PO SCH (09:05)
[2020-04-11] MEDS: DOCUSATE SODIUM 100 MG CAP PO SCH ×2 (09:05→16:00)
[2020-04-11] MEDS: ISOSORBIDE MONONITRATE 30 MG TAB CR PO SCH (09:05)
[2020-04-11] MEDS: OYST-CAL-D 500MG TABLET PO SCH (09:06)
[2020-04-11] MEDS: MULTIVITAMINS/MINERALS TAB PO SCH (09:06)
[2020-04-11] MEDS: ASCORBIC ACID 500 MG TAB PO SCH (09:06)
[2020-04-11] MEDS: VANCOMYCIN 1GM/NS 250 ML 250 ML IV SCH (09:06)
[2020-04-11] MEDS: MAGNESIUM OXIDE 400 MG TAB PO SCH (09:06)
[2020-04-11] MEDS: ZINC SULFATE 220 MG CAP PO SCH (09:06)
[2020-04-11 11:51] VITALS: BP 116/77
--- NOTE | 2020-04-11 12:35 | Progress Note ---
DATE: SUBJECTIVE: The patient is seen and evaluated, available labs and notes reviewed. REVIEW OF SYSTEMS: No nausea, vomiting, fever, chills, chest pain, shortness of breath, headache, rash, or dysuria. The pain is controlled. PHYSICAL EXAMINATION: VITAL SIGNS: Temperature 98.1, pulse 62, respirations 18, and blood pressure 124/75. MEDICATIONS: From ID point of view, the patient is on vancomycin IV and Zosyn. LABORATORY STUDIES: White count improved to 8.03, hemoglobin 12, and platelet 176. Sodium 139, potassium 4.1, and creatinine 0.84. Vancomycin trough 6.7. On 04/10/2020, allan virus PCR not detected. MICROBIOLOGY: Blood culture of 04/08/2020, negative 48 hours. Wound culture showed E coli, sensitivity noted. PHYSICAL EXAMINATION: GENERAL: Alert and oriented, no acute distress. CV: S1-S2. CHEST: Equal expansion. Clear to auscultation. No acute distress. ABDOMEN: Soft. Nontender. No distention. HEENT: Moist. No pallor. No JVD. EXTREMITIES: Buttock surgical site to be clean. No pus or drainage noted. ASSESSMENT AND PLAN: Abscess of the buttock-status post I and D both sites, seen and evaluated. No obvious acute pus drainage. The wound seems to be mostly clean. Culture and sensitivity as above. The patient is status post PICC line. The patient to follow with Dr. Zhou's office for outpatient IV antibiotics. The patient to be discharged with Rocephin 2 g IV piggyback daily for total of 14 days with the 1st dose in the hospital and has appointment with us tomorrow on 04/12/2020 at 11:30 in the morning for his IV antibiotics. Discussed with the nurse. Discussed with attending. Discussed with Dr. Zhou. Please refer to chart for more information. Dictated by Alonso Diaz PA-C (Al) Rojas Zhou MD /MODL /[id number]
--- NOTE | 2020-04-11 15:06 | NUR ---
Spoke with ANA MARÍA Borja with Dr. Zhou. Medications for pt came in today. He can come in tomorrow at 11:30. Dr. Zhou's office information and appointment time were printed and given to pt.
[2020-04-11] MEDS ORDERED: ONDANSETRON HCL 4 MG ORAL DISINTEGRATING TAB PO PRN (16:00)
[2020-04-11 16:07] VITALS: BP 113/64
--- NOTE | 2020-04-11 16:28 | NUR ---
PT GIVEN INSTRUCTION AND DEMONSTRATION WITH TEACH BACK ON DRESSING [employer] SUPPLIES. CAPS FOR PICC LINE, 4X4 PATRICIA, SALINE FOR CLEANING, ABD PADS AND FOAM TAPE.
--- NOTE | 2020-04-12 04:03 | Discharge Summary ---
ADMISSION DIAGNOSES: 1. Bilateral buttock abscess with cellulitis, with sepsis present on admission. 2. Type 2 diabetes. 3. Hypertension. 4. Active smoker. 5. Mild acute hypomagnesemia. 6. Rheumatoid arthritis. 7. Hyperlipidemia. DISCHARGE DIAGNOSES: 1. Bilateral buttock abscess with cellulitis, with sepsis present on admission. 2. Type 2 diabetes. 3. Hypertension. 4. Active smoker. 5. Mild acute hypomagnesemia. 6. Rheumatoid arthritis. 7. Hyperlipidemia. 8. Escherichia coli of the buttock wound with sepsis, present on admission. HISTORY: Diabetes, hypertension, CAD, CA, and RA. SURGICAL HISTORY: Appendectomy, PCI. FAMILY HISTORY: The patient's father had lung cancer. SOCIAL HISTORY: The patient smokes about half a pack of cigarettes a day. He denies alcohol and drug use. HOSPITAL COURSE: A 54-year-old male presents with complaints of swelling, pain in the left buttock area. He has had fever and chills for about a week. He has not noticed any drainage from the wound. On admission, chest x-ray was negative. Surgery was consulted due to the access. WBC on admission was 16.37. The patient was started on vancomycin and Zosyn. The patient was taken to the OR for an I and D of bilateral buttock abscess. Wound culture came back positive for E coli. PICC line was placed and the patient will be discharged home, and follow up with IV antibiotics, Rocephin x14 days with Dr. Zhou. The patient understands discharge instructions and agrees to plan. He will continue home medicines and was given a p.r.n. prescription for Tylenol 3. Dictated by Nona Richards NP MD MERRITT Arriaza/MODL /[id number]
== END 2020-04-11 17:05 | disposition home or self-care (01) | DRG 854 ==
LOC: ER 09:39 → ERHOLD 11:27 → MED/SURG2 13:50
PROVIDERS: ADMIT Internal Medicine; ATTEND Internal Medicine
PROC: 02HV33Z Insertion of Infusion Device into Superior Vena Cava, Percutaneous Approach (ICD-10-PCS; 2020-04-09)
PROC: B548ZZA Ultrasonography of Superior Vena Cava, Guidance (ICD-10-PCS; 2020-04-09)
PROC: 0J990ZZ Drainage of Buttock Subcutaneous Tissue and Fascia, Open Approach (ICD-10-PCS; principal; 2020-04-09 10:00)
DX: A41.9 Sepsis, unspecified organism (principal); L02.31 Cutaneous abscess of buttock; L03.317 Cellulitis of buttock; I10 Essential (primary) hypertension; E11.65 Type 2 diabetes mellitus with hyperglycemia; E11.628 Type 2 diabetes mellitus with other skin complications; I25.10 Atherosclerotic heart disease of native coronary artery without angina pectoris; M06.9 Rheumatoid arthritis, unspecified; I25.2 Old myocardial infarction; Z95.5 Presence of coronary angioplasty implant and graft; Z80.1 Family history of malignant neoplasm of trachea, bronchus and lung; Z84.1 Family history of disorders of kidney and ureter; F17.210 Nicotine dependence, cigarettes, uncomplicated; Z79.82 Long term (current) use of aspirin; Z79.84 Long term (current) use of oral hypoglycemic drugs; I73.9 Peripheral vascular disease, unspecified; E83.42 Hypomagnesemia; E78.5 Hyperlipidemia, unspecified; B96.20 Unspecified Escherichia coli [E. coli] as the cause of diseases classified elsewhere; Z88.5 Allergy status to narcotic agent
CPT/HCPCS: 36415; 36569; 71045; 80048; 80053; 80061; 80202; 82550; 82553; 82948; 83036; 83735; 83880; 84100; 84443; 84484; 85025; 85610; 85730; 87040; 87071; 87075; 87186; 87205; 87635; 90714; 93005; 96367; 99284; J0696; J1100; J1885; J2001; J2250; J2270; J2405; J2543; J3010; J3370; J3475; J7030

== ENCOUNTER 2020-10-06 04:47 | Observation (INO) | payer SELFPAY ==
[~2020-10-06] VITALS: Ht 182.9 cm; Wt 96.2 kg
[~2020-10-06 04:47] MED LIST changes: +TYLENOL WITH C1 EACH PO
[2020-10-06 05:14] LABS: BASOPHILS # (AUTO) 0.1 (0.0-0.1); BASOPHILS % 0.9 % (0.0-1.0); EOSINOPHILS # (AUTO) 0.3 (0.0-0.4); EOSINOPHILS % 2.7 % (0.0-6.0); HEMATOCRIT 45.3 % (38.2-49.6); HEMOGLOBIN 15.4 g/dL (14.0-18.0); LYMPHOCYTES # (AUTO) 3.9 (1.0-3.2); LYMPHOCYTES % 35.8 % (18.0-39.1); MEAN CORPUSCULAR HEMOGLOBIN 30.1 pg (28-32); MEAN CORPUSCULAR VOLUME 88.5 fL (81-99); MONOCYTES % 8.8 % (4.4-11.3); NEUTROPHILS # (AUTO) 5.6 (2.1-6.9); NEUTROPHILS % 51.2 % (38.7-80.0); PLATELET COUNT 159 x10e3/uL (140-360); RED BLOOD COUNT 5.12 x10e6/uL (4.3-5.7); RED CELL DISTRIBUTION WIDTH 14.7 % (11.7-14.4)
[2020-10-06 05:36] LABS: ALANINE AMINOTRANSFERASE 29 IU/L (0-55); ALBUMIN 3.9 g/dL (3.5-5.0); ALBUMIN/GLOBULIN RATIO 1.3 (0.8-2.0); ALKALINE PHOSPHATASE 98 IU/L (40-150); ANION GAP 13.1 mmol/L (8-16); BLOOD UREA NITROGEN 18 mg/dL (7-26); BUN/CREATININE RATIO 17 (6-25); CARBON DIOXIDE 26 mmol/L (22-29); CHLORIDE 106 mmol/L (98-107); CREATININE, SERUM 1.09 mg/dL (0.72-1.25); EST GLOMERULAR FILTRATION RATE > 60 ML/MIN (60-); GLUCOSE 120 mg/dL (74-118); POTASSIUM 4.1 mmol/L (3.5-5.1); SODIUM 141 mmol/L (136-145)
[2020-10-06] MEDS ORDERED: NITROGLYCERIN 0.4 MG SUBL SL PRN (06:30)
[2020-10-06] MEDS ORDERED: MORPHINE SULFATE 2 MG/ML SYR 1ML IV PRN (06:30)
[2020-10-06] MEDS ORDERED: DEXTROSE 50% SYRINGE 50 ML IV PRN (06:30)
[2020-10-06] MEDS ORDERED: ONDANSETRON HCL INJ 2MG/ML 2ML 2 MG/ML VIAL IV PRN (06:30)
[2020-10-06] MEDS ORDERED: CLOPIDOGREL BISULFATE 75 MG TAB PO ONE (06:45)
[2020-10-06] MEDS ORDERED: INSULIN LISPRO 100 UNIT/1 ML 3ML VIAL SQ SCH (07:30)
[2020-10-06] MEDS ORDERED: ZOLPIDEM TARTRATE 5 MG TAB PO PRN (07:30)
[2020-10-06] MEDS ORDERED: METHOTREXATE SOD 2.5 MG TAB PO SCH (07:30)
[2020-10-06] MEDS ORDERED: DOCUSATE SODIUM 100 MG CAP PO PRN (07:30)
[2020-10-06] MEDS ORDERED: ACETAMINOPHEN 325 MG TAB PO PRN (07:30)
[2020-10-06 07:44] LABS: CHOL/HDL RATIO 7.4 (3.9-4.7); CHOLESTEROL 185 MD/DL (0-199); HDL CHOLESTEROL 25 MG/DL (40-60); TRIGLYCERIDES 427 MG/DL (0-149)
[2020-10-06 08:15] VITALS: BP 147/94
[2020-10-06 08:22] VITALS: BP 147/94
[2020-10-06 08:33] VITALS: BP 147/94
[2020-10-06] MEDS ORDERED: FAMOTIDINE 20 MG/2 ML VIAL IV SCH (09:00)
[2020-10-06] MEDS ORDERED: ASPIRIN 81 MG ENTERIC COATED PO SCH (09:00)
[2020-10-06] MEDS ORDERED: CLOPIDOGREL BISULFATE 75 MG TAB PO SCH (09:00)
[2020-10-06] MEDS ORDERED: LOSARTAN POTASSIUM 25 MG TAB PO SCH (09:00)
[2020-10-06] MEDS ORDERED: ATORVASTATIN 40 MG TAB PO SCH (09:00)
[2020-10-06] MEDS ORDERED: METOPROLOL TARTRATE 50 MG TAB PO SCH (09:00)
[2020-10-06] MEDS ORDERED: FENOFIBRATE145 MG PO (09:12)
[2020-10-06] MEDS ORDERED: ENOXAPARIN SOD INJ 40 MG/0.4 ML SYR SC SCH (17:00)
== END 2020-10-06 10:43 | disposition home or self-care (01) ==
LOC: ER 05:41 → ERHOLD 06:34 → MED/SURG3 08:18
PROVIDERS: ADMIT Internal Medicine; ATTEND Internal Medicine
DX: R07.9 Chest pain, unspecified (principal); I10 Essential (primary) hypertension; E11.9 Type 2 diabetes mellitus without complications; I25.2 Old myocardial infarction; I25.10 Atherosclerotic heart disease of native coronary artery without angina pectoris; Z95.5 Presence of coronary angioplasty implant and graft; M19.90 Unspecified osteoarthritis, unspecified site; F17.210 Nicotine dependence, cigarettes, uncomplicated; Z88.5 Allergy status to narcotic agent
CPT/HCPCS: 36415; 71045; 80053; 80061; 82948; 83036; 84484; 85025; 93005; 99284; G0378; U0002

== ENCOUNTER 2021-03-31 11:41 | Observation (INO) | payer SELFPAY ==
[~2021-03-31] VITALS: Ht 182.9 cm; Wt 94.9 kg
[~2021-03-31 11:41] MED LIST changes: +FENOFIBRATE145 MG PO
[2021-03-31] MEDS ORDERED: ASPIRIN 81 MG CHEW TAB PO STA (12:13)
[2021-03-31 12:35] LABS: BASOPHILS # (AUTO) 0.1 (0.0-0.1); BASOPHILS % 0.8 % (0.0-1.0); EOSINOPHILS # (AUTO) 0.2 (0.0-0.4); EOSINOPHILS % 1.5 % (0.0-6.0); HEMATOCRIT 52.5 % (38.2-49.6); HEMOGLOBIN 17.9 g/dL (14.0-18.0); LYMPHOCYTES # (AUTO) 3.5 (1.0-3.2); LYMPHOCYTES % 31.5 % (18.0-39.1); MEAN CORPUSCULAR HEMOGLOBIN 29.1 pg (28-32); MEAN CORPUSCULAR HGB CONC 34.1 g/dL (31-35); MEAN CORPUSCULAR VOLUME 85.2 fL (81-99); MONOCYTES # (AUTO) 0.6 (0.2-0.8); MONOCYTES % 5.8 % (4.4-11.3); NEUTROPHILS # (AUTO) 6.6 (2.1-6.9); NEUTROPHILS % 59.9 % (38.7-80.0); PLATELET COUNT 205 x10e3/uL (140-360); RED BLOOD COUNT 6.16 x10e6/uL (4.3-5.7); RED CELL DISTRIBUTION WIDTH 14.1 % (11.7-14.4)
[2021-03-31 12:54] LABS: ALANINE AMINOTRANSFERASE 25 IU/L (0-55); ALBUMIN 4.2 g/dL (3.5-5.0); ALBUMIN/GLOBULIN RATIO 1.2 (0.8-2.0); ALKALINE PHOSPHATASE 106 IU/L (40-150); ANION GAP 18.3 mmol/L (8-16); BLOOD UREA NITROGEN 16 mg/dL (7-26); BUN/CREATININE RATIO 14 (6-25); CALCIUM 9.2 mg/dL (8.4-10.2); CARBON DIOXIDE 23 mmol/L (22-29); CHLORIDE 103 mmol/L (98-107); CREATINE KINASE 31 IU/L (30-200); CREATININE, SERUM 1.18 mg/dL (0.72-1.25); EST GLOMERULAR FILTRATION RATE > 60 ML/MIN (60-); GLUCOSE 191 mg/dL (74-118); INR 0.87; MAGNESIUM 1.9 MG/DL (1.3-2.1); PARTIAL THROMBOPLASTIN TIME 30.3 seconds (23.8-35.5); POTASSIUM 4.3 mmol/L (3.5-5.1); PROTHROMBIN TIME 12.4 seconds (11.9-14.5); SODIUM 140 mmol/L (136-145)
[2021-03-31 13:14] LABS: THYROID STIMULATING HORMONE 2.415 uIU/mL (0.350-4.940)
[2021-03-31] MEDS ORDERED: ONDANSETRON HCL INJ 2MG/ML 2ML 2 MG/ML VIAL IV PRN (16:30)
[2021-03-31] MEDS ORDERED: MORPHINE SULFATE INJ 2 MG/ML SYR IV PRN (16:45)
[2021-03-31 18:21] VITALS: BP 152/103
[2021-03-31 19:45] VITALS: BP 147/80
[2021-03-31 20:22] VITALS: BP 147/80
[2021-03-31 20:28] LABS: CREATINE KINASE 26 IU/L (30-200)
[2021-03-31 21:00] VITALS: BP 147/80
[2021-03-31 23:12] VITALS: BP 136/82
[2021-04-01 05:24] LABS: BASOPHILS # (AUTO) 0.1 (0.0-0.1); BASOPHILS % 1.1 % (0.0-1.0); EOSINOPHILS # (AUTO) 0.3 (0.0-0.4); EOSINOPHILS % 2.6 % (0.0-6.0); HEMATOCRIT 51.4 % (38.2-49.6); HEMOGLOBIN 17.1 g/dL (14.0-18.0); LYMPHOCYTES # (AUTO) 3.4 (1.0-3.2); LYMPHOCYTES % 33.4 % (18.0-39.1); MEAN CORPUSCULAR HEMOGLOBIN 28.8 pg (28-32); MEAN CORPUSCULAR HGB CONC 33.3 g/dL (31-35); MEAN CORPUSCULAR VOLUME 86.5 fL (81-99); MONOCYTES # (AUTO) 0.8 (0.2-0.8); MONOCYTES % 7.4 % (4.4-11.3); NEUTROPHILS # (AUTO) 5.6 (2.1-6.9); NEUTROPHILS % 54.8 % (38.7-80.0); PLATELET COUNT 189 x10e3/uL (140-360); RED BLOOD COUNT 5.94 x10e6/uL (4.3-5.7); RED CELL DISTRIBUTION WIDTH 14.3 % (11.7-14.4)
[2021-04-01 05:50] VITALS: BP 131/90
[2021-04-01 06:08] LABS: ALANINE AMINOTRANSFERASE 25 IU/L (0-55); ALBUMIN 3.9 g/dL (3.5-5.0); ALBUMIN/GLOBULIN RATIO 1.2 (0.8-2.0); ALKALINE PHOSPHATASE 100 IU/L (40-150); ANION GAP 14.4 mmol/L (8-16); BLOOD UREA NITROGEN 19 mg/dL (7-26); BUN/CREATININE RATIO 18 (6-25); CALCIUM 8.9 mg/dL (8.4-10.2); CARBON DIOXIDE 27 mmol/L (22-29); CHLORIDE 103 mmol/L (98-107); CHOL/HDL RATIO 6.8 (3.9-4.7); CHOLESTEROL 204 MD/DL (0-199); CREATININE, SERUM 1.08 mg/dL (0.72-1.25); EST GLOMERULAR FILTRATION RATE > 60 ML/MIN (60-); GLUCOSE 117 mg/dL (74-118); HDL CHOLESTEROL 30 MG/DL (40-60); LDL CHOLESTEROL 148 MG/DL (60-130); POTASSIUM 4.4 mmol/L (3.5-5.1); SODIUM 140 mmol/L (136-145); TRIGLYCERIDES 131 MG/DL (0-149)
[2021-04-01 06:41] LABS: CREATINE KINASE 18 IU/L (30-200)
[2021-04-01] MEDS ORDERED: METFORMIN HCL 500 MG TAB CR PO SCH (08:00)
[2021-04-01 08:50] VITALS: BP 131/90
[2021-04-01] MEDS ORDERED: FOLIC ACID 1 MG TAB PO SCH (09:00)
[2021-04-01] MEDS ORDERED: ASPIRIN 81 MG ENTERIC COATED PO SCH (09:00)
[2021-04-01] MEDS ORDERED: METOPROLOL TARTRATE 50 MG TAB PO SCH (09:00)
[2021-04-01 09:23] VITALS: BP 136/76
[2021-04-01 12:14] VITALS: BP 152/86
[2021-04-01] MEDS ORDERED: ATORVASTATIN CA20 MG PO (12:32)
[2021-04-01] MEDS ORDERED: ATORVASTATIN 40 MG TAB PO SCH (21:00)
== END 2021-04-01 12:52 | disposition home or self-care (01) ==
LOC: ER 12:51 → ERHOLD 16:30 → MED/SURG2 17:48
PROVIDERS: ADMIT Family Medicine; ATTEND Family Medicine
DX: R07.9 Chest pain, unspecified (principal); I10 Essential (primary) hypertension; I25.10 Atherosclerotic heart disease of native coronary artery without angina pectoris; F17.200 Nicotine dependence, unspecified, uncomplicated; E78.5 Hyperlipidemia, unspecified; Z91.14 Patient's other noncompliance with medication regimen; Z95.5 Presence of coronary angioplasty implant and graft; Z83.3 Family history of diabetes mellitus; Z82.49 Family history of ischemic heart disease and other diseases of the circulatory system; E11.9 Type 2 diabetes mellitus without complications; Z88.5 Allergy status to narcotic agent; Z79.84 Long term (current) use of oral hypoglycemic drugs; Z20.822 Contact with and (suspected) exposure to COVID-19
CPT/HCPCS: 36415 ×2; 70450; 71045; 80053 ×2; 80061; 82550 ×2; 82553 ×2; 82948; 83735; 83880; 84443; 84484 ×2; 85025 ×2; 85610; 85730; 93005; 93306; 99284; G0378 ×2; U0002

== ENCOUNTER 2021-04-06 11:57 | Inpatient (IN) | payer SELFPAY ==
[~2021-04-06] VITALS: Ht 182.9 cm; Wt 94.8 kg
[~2021-04-06 11:57] MED LIST changes: +ATORVASTATIN CA20 MG PO; +DEXAMETHASONE SOD PHOS INJ 4 MG/ML VIAL ONE; +KETOROLAC TROMETHAMINE 30 MG/ML VIAL ONE; +ONDANSETRON HCL INJ 2MG/ML 2ML 2 MG/ML VIAL ONE; +POVIDONE IODINE 0.05% 0.05 % ML PO ONE; +PROPOFOL IV EMULSION 10 MG/ML 20 ML VIAL ONE; +SEVOFLURANE INHAL SOLN 250 ML PEN BTL ONE
[2021-04-06] MEDS ORDERED: SODIUM CHLORIDE 0.9% 1000ML 1,000 ML IV STA (12:55)
[2021-04-06] MEDS ORDERED: ONDANSETRON HCL INJ 2MG/ML 2ML 2 MG/ML VIAL IV NR (13:00)
[2021-04-06] MEDS ORDERED: MORPHINE SULFATE INJ 4 MG/ML INJ 1ML IV NR (13:00)
[2021-04-06 13:23] LABS: BASOPHILS # (AUTO) 0.1 (0.0-0.1); BASOPHILS % 0.5 % (0.0-1.0); EOSINOPHILS # (AUTO) 0.2 (0.0-0.4); EOSINOPHILS % 1.7 % (0.0-6.0); HEMATOCRIT 50.3 % (38.2-49.6); LYMPHOCYTES # (AUTO) 2.3 (1.0-3.2); LYMPHOCYTES % 17.5 % (18.0-39.1); MEAN CORPUSCULAR HEMOGLOBIN 29.2 pg (28-32); MEAN CORPUSCULAR HGB CONC 33.8 g/dL (31-35); MEAN CORPUSCULAR VOLUME 86.4 fL (81-99); MONOCYTES # (AUTO) 1.3 (0.2-0.8); MONOCYTES % 9.6 % (4.4-11.3); NEUTROPHILS # (AUTO) 9.3 (2.1-6.9); NEUTROPHILS % 70.2 % (38.7-80.0); PLATELET COUNT 173 x10e3/uL (140-360); RED BLOOD COUNT 5.82 x10e6/uL (4.3-5.7)
[2021-04-06 13:43] LABS: ALANINE AMINOTRANSFERASE 19 IU/L (0-55); ALBUMIN 3.8 g/dL (3.5-5.0); ALKALINE PHOSPHATASE 98 IU/L (40-150); ANION GAP 14.2 mmol/L (8-16); BLOOD UREA NITROGEN 20 mg/dL (7-26); BUN/CREATININE RATIO 18 (6-25); CALCIUM 9.2 mg/dL (8.4-10.2); CARBON DIOXIDE 26 mmol/L (22-29); CHLORIDE 101 mmol/L (98-107); CREATININE, SERUM 1.11 mg/dL (0.72-1.25); EST GLOMERULAR FILTRATION RATE > 60 ML/MIN (60-); GLUCOSE 94 mg/dL (74-118); POTASSIUM 4.2 mmol/L (3.5-5.1); SODIUM 137 mmol/L (136-145)
[2021-04-06] MEDS ORDERED: VANCOMYCIN 1GM/NS 250 ML 250 ML IV ONE (13:45)
[2021-04-06] MEDS: PIPERACILLIN/TAZOBACTAM 3.375 GM in SODIUM CHLORIDE 0.9% 50ML 50 ML IV SCH ×3 (14:00→20:09)
[2021-04-06] MEDS ORDERED: MORPHINE SULFATE INJ 2 MG/ML SYR IV PRN (14:15)
[2021-04-06] MEDS ORDERED: ONDANSETRON HCL INJ 2MG/ML 2ML 2 MG/ML VIAL IV PRN (14:15)
[2021-04-06] MEDS ORDERED: LIDOCAINE 1% W/EPINEPHRINE 20 ML VIAL ONE (17:38)
[2021-04-06] MEDS ORDERED: BUPIVACAINE HCL 0.5% INJ 30 ML VIAL INJ ONE (17:38)
[2021-04-06 18:24] VITALS: BP 143/87
[2021-04-06 18:43] VITALS: BP 143/87
[2021-04-06 18:44] VITALS: BP 143/87
[2021-04-06] MEDS: SODIUM CHLORIDE 0.9% 1000ML 1,000 ML IV SCH ×2 (18:54→20:45)
[2021-04-06 20:33] VITALS: BP 111/76
[2021-04-06 21:42] VITALS: BP 111/76
[2021-04-06 21:47] VITALS: BP 111/76
[2021-04-07 00:10] VITALS: BP 126/78
[2021-04-07] MEDS: PIPERACILLIN/TAZOBACTAM 3.375 GM in SODIUM CHLORIDE 0.9% 50ML 50 ML IV SCH ×3 (01:04→12:09)
[2021-04-07] MEDS: SODIUM CHLORIDE 0.9% 1000ML 1,000 ML IV SCH ×2 (06:15→12:09)
[2021-04-07 06:16] LABS: BASOPHILS % 0.1 % (0.0-1.0); EOSINOPHILS % 0.1 % (0.0-6.0); HEMATOCRIT 44.4 % (38.2-49.6); LYMPHOCYTES # (AUTO) 1.4 (1.0-3.2); LYMPHOCYTES % 15.2 % (18.0-39.1); MEAN CORPUSCULAR HEMOGLOBIN 29.3 pg (28-32); MEAN CORPUSCULAR HGB CONC 33.8 g/dL (31-35); MEAN CORPUSCULAR VOLUME 86.7 fL (81-99); MONOCYTES # (AUTO) 0.4 (0.2-0.8); MONOCYTES % 3.9 % (4.4-11.3); NEUTROPHILS # (AUTO) 7.2 (2.1-6.9); NEUTROPHILS % 80.1 % (38.7-80.0); PLATELET COUNT 136 x10e3/uL (140-360); RED BLOOD COUNT 5.12 x10e6/uL (4.3-5.7); RED CELL DISTRIBUTION WIDTH 13.8 % (11.7-14.4)
[2021-04-07 06:24] VITALS: BP 129/80
[2021-04-07 06:46] LABS: ALANINE AMINOTRANSFERASE 17 IU/L (0-55); ANION GAP 13.3 mmol/L (8-16); BLOOD UREA NITROGEN 17 mg/dL (7-26); BUN/CREATININE RATIO 18 (6-25); CALCIUM 8.2 mg/dL (8.4-10.2); CARBON DIOXIDE 21 mmol/L (22-29); CHLORIDE 106 mmol/L (98-107); CREATININE, SERUM 0.96 mg/dL (0.72-1.25); EST GLOMERULAR FILTRATION RATE > 60 ML/MIN (60-); GLUCOSE 235 mg/dL (74-118); POTASSIUM 4.3 mmol/L (3.5-5.1); SODIUM 136 mmol/L (136-145)
[2021-04-07] MEDS ORDERED: METHOTREXATE SOD 2.5 MG TAB PO SCH (07:00)
[2021-04-07 08:04] VITALS: BP 111/65
[2021-04-07 08:49] LABS: ALKALINE PHOSPHATASE 88 IU/L (40-150)
[2021-04-07 09:50] VITALS: BP 111/65
[2021-04-07 09:53] VITALS: BP 111/65
[2021-04-07 11:22] VITALS: BP 124/72
[2021-04-07] MEDS ORDERED: METOPROLOL TARTRATE 50 MG TAB PO SCH (21:00)
[2021-04-07] MEDS ORDERED: LOSARTAN POTASSIUM 25 MG TAB PO SCH (21:00)
[2021-04-07] MEDS ORDERED: FOLIC ACID 1 MG TAB PO SCH (21:00)
[2021-04-07] MEDS ORDERED: ATORVASTATIN 40 MG TAB PO SCH (21:00)
[2021-04-07] MEDS ORDERED: METFORMIN HCL 500 MG TAB CR PO SCH (21:00)
== END 2021-04-07 14:55 | disposition home or self-care (01) | DRG 581 ==
LOC: ER 12:40 → ERHOLD 14:16 → MED/SURG3 18:20
PROVIDERS: ADMIT Internal Medicine; ATTEND Internal Medicine
PROC: 0J990ZZ Drainage of Buttock Subcutaneous Tissue and Fascia, Open Approach (ICD-10-PCS; principal; 2021-04-06 17:16)
DX: L02.31 Cutaneous abscess of buttock (principal); E11.9 Type 2 diabetes mellitus without complications; I25.10 Atherosclerotic heart disease of native coronary artery without angina pectoris; E78.5 Hyperlipidemia, unspecified; I10 Essential (primary) hypertension
CPT/HCPCS: 36415; 80053; 82948; 83605; 85025; 87040; 93005; 99284; J1100; J1885; J2270; J2405; J2543; J3370; J7030; U0002

== ENCOUNTER 2025-02-15 23:59 | Emergency (ER) | payer BC, OTHER ==
[~2025-02-15] VITALS: Ht 182.9 cm; Wt 95.3 kg
[~2025-02-15 23:59] MED LIST changes: -DEXAMETHASONE SOD PHOS INJ 4 MG/ML VIAL ONE; -KETOROLAC TROMETHAMINE 30 MG/ML VIAL ONE; -ONDANSETRON HCL INJ 2MG/ML 2ML 2 MG/ML VIAL ONE; -POVIDONE IODINE 0.05% 0.05 % ML PO ONE; -PROPOFOL IV EMULSION 10 MG/ML 20 ML VIAL ONE; -SEVOFLURANE INHAL SOLN 250 ML PEN BTL ONE
[2025-02-16 00:18] VITALS: TEMP 98.9
[2025-02-16 01:09] LABS: BASOPHILS # (AUTO) 0.1 (0.0-0.1); BASOPHILS % 0.7 % (0.0-1.0); EOSINOPHILS # (AUTO) 0.1 (0.0-0.4); HEMOGLOBIN 16.1 g/dL (14.0-18.0); LYMPHOCYTES # (AUTO) 1.5 (1.0-3.2); LYMPHOCYTES % 12.1 % (18.0-39.1); MEAN CORPUSCULAR HEMOGLOBIN 30.6 pg (28-32); MEAN CORPUSCULAR HGB CONC 34.3 g/dL (31-35); MEAN CORPUSCULAR VOLUME 89.2 fL (81-99); MONOCYTES # (AUTO) 0.6 (0.2-0.8); NEUTROPHILS % 80.7 % (38.7-80.0); PLATELET COUNT 184 x10e3/uL (140-360); RED BLOOD COUNT 5.27 x10e6/uL (4.3-5.7); RED CELL DISTRIBUTION WIDTH 14.1 % (11.7-14.4); WHITE BLOOD COUNT 12.32 x10e3/uL (4.8-10.8)
[2025-02-16] MEDS: KETOROLAC TROMETHAMINE 30 MG/ML VIAL IV STA (01:11)
[2025-02-16] MEDS: CYCLOBENZAPRINE HCL 10 MG TAB PO ONE (01:11)
[2025-02-16 01:23] LABS: ALBUMIN 4.2 g/dL (3.5-5.0); ALBUMIN/GLOBULIN RATIO 1.2 (0.8-2.0); ANION GAP 17.3 mmol/L (8-16); BILIRUBIN,TOTAL 0.5 mg/dL (0.2-1.2); CALCIUM 10.3 mg/dL (8.4-10.2); CREATININE, SERUM 1.32 mg/dL (0.72-1.25); TOTAL PROTEIN 7.8 g/dL (6.5-8.1)
[2025-02-16 02:10] LABS: POTASSIUM 5.3 mmol/L (3.5-5.1)
[2025-02-16] MEDS: SODIUM CHLORIDE 0.9% 1000ML 1,000 ML IV ONE (03:05)
[2025-02-16 04:31] VITALS: PULSE 63; RESP 17
[2025-02-16 04:55] LABS: CREATININE, SERUM 1.22 mg/dL (0.72-1.25)
[2025-02-16 05:01] VITALS: BP 136/96; PULSE 67; RESP 14; TEMP 97.9; O2SAT 99
[2025-02-16] MEDS ORDERED: CYCLOBENZAPRINE10 MG PO (05:06)
== END 2025-02-16 05:10 | disposition home or self-care (01) ==
LOC: ER 02-16 00:26
DX: M54.2 Cervicalgia (principal); E87.5 Hyperkalemia; I10 Essential (primary) hypertension; E11.65 Type 2 diabetes mellitus with hyperglycemia; E78.5 Hyperlipidemia, unspecified; I25.10 Atherosclerotic heart disease of native coronary artery without angina pectoris; M06.9 Rheumatoid arthritis, unspecified; R94.31 Abnormal electrocardiogram [ECG] [EKG]; I25.2 Old myocardial infarction; F17.210 Nicotine dependence, cigarettes, uncomplicated
CPT/HCPCS: 36415; 70450; 72125; 80048; 80053; 85025; 93005; 99284; J1885; J7030